=== PATIENT | male | born 1980 | race Caucasian/White ===

== ENCOUNTER → 2016-06-18 | Outpatient (CLI) | payer OTHER ==
[~2016-06-18] MED LIST: LEVO750T39 PO; METR500T17 PO; OMEPRAZOLE
--- NOTE | 2016-06-18 09:15 | Diagnostic Imaging Report ---
PROCEDURE: US Abdomen, limited. TECHNIQUE: Multiple realtime grayscale images were obtained over the abdomen in various projections. Indication: Chronic right upper quadrant pain. Comparison: Abdominal ultrasound 01/31/2012. Discussion: Sonographic evaluation of the right upper quadrant was performed. The liver appears normal in echotexture and size. No hepatic mass identified. The gallbladder appears normal without evidence of cholelithiasis, wall thickening, or pericholecystic fluid. No evidence of biliary duct dilatation. The common bile duct is normal measuring 0.4 cm. The pancreas appears normal as visualized. The right kidney appears normal in echotexture and size without evidence of hydronephrosis or renal mass. The right kidney measures 10.4 cm. There is no ascites or abnormal bowel loops identified. No sonographic Ellsworth sign was reported. Impression: 1. Unremarkable right upper quadrant ultrasound. Dictated by: Dictated on workstation # [id number]
== END ==
LOC: RAD 08:31
PROVIDERS: ATTEND Internal Medicine
DX: R10.11 Right upper quadrant pain (principal)
CPT/HCPCS: 76705